=== PATIENT | male | born 1965 | race Caucasian/White ===

== ENCOUNTER 2021-05-28 01:18 | Outpatient (CLI) | payer MEDICAID, SELFPAY ==
[2021-05-28 12:09] LABS: Source Nasal/Nares
[2021-05-28 15:19] LABS: COVID-19 PCR Positive (Negative)
== END 2021-05-28 01:19 | disposition home or self-care (01) ==
LOC: LBO 01:18
PROVIDERS: PCP Family Medicine; Visit Provider Surgery
DX: Z20.822 Contact with and (suspected) exposure to COVID-19 (principal); Z01.818 Encounter for other preprocedural examination
CPT/HCPCS: 87635

== ENCOUNTER 2021-07-28 03:07 | Outpatient (CLI) | payer MEDICAID, SELFPAY ==
[2021-07-28 10:40] LABS: Source Nasal/Nares
[2021-07-28 13:07] LABS: COVID-19 PCR Negative (Negative)
== END 2021-07-28 03:08 | disposition home or self-care (01) ==
LOC: LBO 03:07
PROVIDERS: PCP Family Medicine; Visit Provider Surgery
DX: Z20.822 Contact with and (suspected) exposure to COVID-19 (principal); Z01.818 Encounter for other preprocedural examination
CPT/HCPCS: 87635

== ENCOUNTER 2021-07-29 08:47 | Day surgery (SDC) | payer MEDICAID, SELFPAY ==
--- NOTE | 2021-07-28 09:51 | ENDO_ITS ---
Date of service: 07/29/21 Time of Service: 17:15 Endoscopy Report DATE OF PROCEDURE: 07/29/21 PRE-OP DIAGNOSIS: Rizzo's esophagus POST-OP DIAGNOSIS: other (mild doudenitits/mild gastritis/2cm tongue Barett's/1cm H.hernia) SURGEON: Pia Figueroa ANESTHESIA TYPE: General:No Airway ESTIMATED BLOOD LOSS: 2 PATHOLOGY: other COMPLICATIONS: None DISPOSITION: PACU PROCEDURE DESCRIPTION: After informed consent was obtained the patient was take to the procedure room and placed in a supine position. Monitors were applied and a time out was done. The patients name, date of , procedure type, allergies to medications and metal in their body was reviewed. A bite block was placed and the patient was sedated. Once sedated and comfortable the gastroscope was advanced through the oropharynx which was grossly normal into the esophagus. The proximal and mid-esophagus were nl. In the distal esophagus there was 2cm tongue of Rizzo's x1 noted. There are no esophageal varices/diverticula/or stricture. The scope was advanced into the stomach and through the pylorus into the 3rd portion of the duodenum. The duodenum was noted: mild duodenitis, otherwise normal. Biopsies were done, all specimens are retrieved and no bleeding is noted. The scope was retracted back into the stomach and biopsies were done to rule out H. pylori. There were no ulcers. There is some mild to moderate gastritis in the dependent portion of the stomach/along the greater curvature.. The scope was retroflexed. The cardia and fundus were noted to be normal. There small 1 production support manager hiatal hernia noted. The scope was retracted back into the esophagus and biopsies were done of the GE junction to rule out Rizzo's. The Z line was irregular. The GE junction was at 40 cm. Biopsies were also taken of the distal esophagus at 38 and 39 cm. The largest tongue of Rizzo the exist all the way up to 38 cm/is 2 cm in length.. The scope was removed and the patient was woken up and taken back to [facility] in stable condition. Patient has been encouraged to take a proton pump inhibitor or H2 christiana. He does not want to take medications.
--- NOTE | 2021-07-28 18:14 | W.PM.DSUDISC ---
Discharge Plan Disposition Patient Disposition: HOME Condition: Good Discharge Details Reason For Visit: stomach scope Attending Provider: Pia Figueroa Primary Care Provider: Joseph Aquino Home Meds and New Rx's Prescriptions: No Action fuazsdi-wvca-aiquq-oreg-capryl 100 mg-150 mg- 50 mg-150 mg capsule 1 cap PO DAILY 0RF focus Factor 1 cap PO DAILY 0RF Discharge Instructions Additional Instructions: Post EGD Instruction ? ?You had anesthesia for your EGD/stomach scope today.? For your safety, please do the following for the next twenty-four (24) hours: Do Not operate a motor vehicle (car, truck, motorcycle, etc.) Do Not drink alcoholic beverages or use any recreational drugs for the first 24 hours or while taking pain medications. The medications in your body may have a reaction that can be dangerous. Do Not make any important decisions or sign any important papers You have just had a gastroscopy (EGD) or upper GI tract examination. It is important for your smooth recovery that you carefully follow the recommendations below. Do not hesitate to call if any questions should arise about your anesthesia, condition, or care. -Symptoms you may experience during the next 24 hours: ?1. Mild abdominal pain or excessive gas or a bloated feeling which improves with rest, liquids, eating? slightly, and walking as tolerated. 2. Drowsiness and/or forgetfulness because of the medications you were given. ?3. Throat numbness for about 1 hour. 4. A sore throat which you can treat with throat lozenges or by gargling with salt water 4-5 times a day. 5. Redness at the site of your IV which you can treat with warm compresses. SPECIAL INSTRUCTIONS: 1. You may resume your previous diet in one hour. We recommend a light meal to start, then progress as tolerated. 2. Restart regular medications in one hour. 3. No aspirin or non-steroidal containing medication for three days. 4. No lifting over 20 pounds or strenuous activity for the first 24 hours after your procedure. After 24 hours there are no restrictions on your activity, but you may feel fatigued for a few days. ? Findings: -Mild gastritis and duodenitis -Small hiatal hernia -Rizzo's esophagus ? Treatment: -Stop any smoking products. -You should be on a PPI daily for your reflux, such as Protonix or , or Prilosec. -Continue to follow lifestyle modifications: No alcohol, tobacco products, Aspirin or NSAID's (ibuprofen, Motrin, Naprosyn, aleve, etc).? Try to limit/avoid:? soda pop/any carbonated beverages, caffeine (including tea & chocolate), and acidic foods, (tomatoes, citrus, onions, peppermints) spicy or fried/fatty foods. Do not lie down for 30 minutes after eating, and do not eat 2 hours prior to bedtime. Avoid wearing tight fitting clothing/ belts. Follow up: My office will send a letter with the results of your biopsy?s in 2-3wks time. -Plan on repeat EGD in 3 years time. Call the office at [phone] (Office) or [phone] (Hospital), or go to the ER right away if you notice any of the followin. Vomiting blood and /or ?coffee ground? material. ?2. Worsening of abdominal pain or cramping. ?3. Trouble with breathing, cough, and/or fever (temperature above 101.5 F). 4. Increasing pain with swallowing. ?5. Chest pain. 6. Any new symptoms. 7. Worsening of the redness at the IV site ? Activity:: see above Diet:: see above Discharge Orders Discharge Orders: Discharge Order (Routine); Ordered 07/28/21 Ordered By: Pia Figueroa
[2021-07-29 09:05] VITALS: BP 127/84; PULSE 57; RESP 18; TEMP 36.9; O2SAT 97
[2021-07-29] MEDS: Lactated Ringers 1,000 ML 80 ML IV (09:23)
--- NOTE | 2021-07-29 09:24 | ANES.PREOP_ITS ---
General Info Date of Service Date Performed: 07/29/21 Height: 5 ft 9 in Weight: 9.5 kg Body Mass Index (BMI): 3.0 Surgical Procedure: Operation Date: 07/29/21 10:20 Proposed Procedure Side Surgeon p Gastroscopy Pia Figueroa, Meds Allergies and Home Medications Allergies Allergy/AdvReac Type Severity Reaction Status Date / Time Tone soap Allergy Intermediate Skin Rash Uncoded 07/29/21 09:15 Home Medication Medication Instructions Recorded focus Factor 1 cap PO DAILY 07/17/21 tumeric 100 mg-kay 150 mg-olive 1 cap PO DAILY 07/17/21 50 mg-oreg 150 mg-caprylate capsule Current Visit Medications: Current Medications Generic Name Dose Route Start Last Admin Trade Name Freq PRN Reason Stop Dose Admin Hyoscyamine Sulfate 0.125 mg 07/28/21 09:51 Hyoscyamine 0.125 Mg Sl/Oral/Chew SL 07/29/21 16:00 DIRECTED PRN Ringer's Solution 1,000 mls @ 80 mls/hr 07/29/21 06:00 07/29/21 09:23 IV 07/31/21 23:59 80 mls/hr INFUSION WAYNE Administration IV Miscellaneous Supplies 1 each 07/29/21 06:00 Iv Access IV 07/31/21 23:59 DIRECTED WAYNE Ondansetron HCl 4 mg 07/28/21 09:51 Ondansetron 4 Mg/2 Ml Vial IVP 07/29/21 16:00 Q4H PRN PRN Nausea / Vomiting Sodium Chloride 0 ml 07/29/21 06:00 Normal Saline Flush 10 Ml Syr IV 07/31/21 23:59 PRN PRN Sodium Chloride 0 ml 07/29/21 06:00 Normal Saline 10 Ml Vial IJ 07/31/21 23:59 DIRECTED PRN Sterile Water 0 ml 07/29/21 06:00 Water,Injection,Sterile 10 Ml Vial IJ 07/31/21 23:59 DIRECTED PRN PFSH Active Problems Active Problems: Problem Status Onset Code Barretts esophagus K22.70 Tubular adenoma of colon D12.6 Hyperplastic colon polyp K63.5 Left lower quadrant pain R10.32 Medical History Medical History COVID (~05/28/21) symptomatic Diverticulitis GERD (gastroesophageal reflux disease) Hypertension Melena Surgical History Surgical History Colectomy (~08/2008) Sigmoid resection for diverticulitis Colonoscopy - MAC (08/06/17) EGD - MAC (08/06/17) Tobacco Smoking/Tobacco Use Status: Former Tobacco Use Alcohol Alcohol Intake: never Substance Use Substance use: Occasionally Substance use type: marijuana and other Details: Vapes CBD Daily, last today at 07.29.21 0700 Vital Signs and Lab Results Vital Signs Most Recent Vital Signs in EMR: Most Recent Vital Signs Temp Pulse Resp BP Pulse Ox 36.9 C 57 L 18 127/84 97 07/29/21 09:05 07/29/21 09:05 07/29/21 09:05 07/29/21 09:05 07/29/21 09:05 Lab Results Blood Type / Crossmatch: No Data to Display Complete Blood Count: No Data to Display Complete Metabolic Panel: No Data to Display Liver Function Panel: 2 No Data to Display Coagulation Panel: No Data to Display Cardiac Panel: No Data to Display Arterial Blood Gas: No Data to Display Venous Blood Gas: No Data to Display Pancreas Panel: No Data to Display Thyroid Panel: No Data to Display Infectious Disease: Coronavirus (COVID-19)(PCR) Negative (Negative) 07/28/21 08:49 07/28/21 Coronavirus 2019 Source Nasal/Nares 07/28/21 08:49 07/28/21 Blood Cultures: No Data to Display Toxicology Panel: No Data to Display Anesthesia Assessment and Plan Anesthesia History Personal History: No History of Anesthesia Complications Family History: No Family History of Anesthesia Complications Exercise Tolerance Exercise Tolerance: Metabolic Equivalents>4 Pertinent Negatives Pertinent Negatives: No Symptoms of GERD Cardiac & Pulmonary Exam Cardiac Exam: Normal S1/S2 Heart Sounds Pulmonary Exam: Clear Bilateral Breath Sounds Implantable Cardiac Device Does patient have a Pacemaker or an ICD?: No Airway Exam Known Difficult Airway: No Mallampati Class: 2 Mouth Opening: Normal (> 3cm) Thyromental Distance: Greater than 3 cm Neck Range of Motion: Full ROM Neck Circumference: Normal Teeth Condition: Generalized Poor Dentition and Edentulous (Upper) ASA Classification ASA Score: ASA 2 Emergency Case?: No NPO Status NPO Status: NPO Clears >2 hours, Solids >8 hours Anesthesia Plan Resuscitation Status: Full Code Anesthesia Technique: General Anesthesia Airway Planned: Natural Airway Monitors Used: Standard Monitors
--- NOTE | 2021-07-29 11:18 | STOM_PTH ---
PATIENT: Aneesh Mcadams LOC: [facility] U#:[id number] AGE/SX: 56/M ROOM: RE07/29/[address]: Pia Figueroa : 1965 BED: DIS: 07/29/2021 SPEC #: [id number] RECD: 07/29/21 13:07 STATUS: LAURE ARZOLA #: [id number] PARAMJIT: 07/29/21 11:[address]: Pia Figueroa DEPT: Surgical Specimen RECD BY: Ju[place] Nam ENTERED: 07/29/21 13:09 SP TYPE: STOMACH OTHR DR: Joseph Aquino Tissues: 1 - BIOPSY BOWEL 2 - BIOPSY BOWEL 3 - STOMACH BIOPSY 4 - STOMACH BIOPSY 5 - ESOPHAGUS BIOPSY 6 - ESOPHAGUS BIOPSY 7 - ESOPHAGUS BIOPSY Procedures: GROSS AND MICRO LEVEL 4 Comments: [id number]
--- NOTE | 2021-07-29 11:41 | W.ANESPOSTOP ---
Postoperative Evaluation Date, Time and Location Date Performed: 07/29/21 Time Performed: 11:41 Patient Location: Day Surgery Unit Vital Signs Most Recent Imported Vital Signs: Most Recent Vital Signs Temp Pulse Resp BP Pulse Ox 36.9 C 57 L 18 127/84 97 07/29/21 09:05 07/29/21 09:05 07/29/21 09:05 07/29/21 09:05 07/29/21 09:05 Most Recent Manually Entered Vital Signs: Adult Blood Pressure: 123/77 Heart Rate: 50 Respirations: 12 Oxygen Saturation (%): 98 Temperature (C): 36.3 C Pain Score (0-10 Scale): 0 Pain Score Most Recent Pain Score: Most Recent Pain Score Pain Level 0 07/29/21 09:05 Assessment Mental Status: Awake (Alert & Oriented to Patient Baseline) Airway and Respiratory Function: Patent airway with normal (patient baseline) respiratory exam Cardiovascular Function: Hemodynamically Stable Hydration Status: Adequately Hydrated Nausea & Vomiting: No Nausea or Vomiting Pain: Pt. Denies Any Pain Peripheral Nerve Block: Patient did not receive a nerve block
[2021-07-29 11:42] VITALS: BP 123/77; PULSE 50; PULSE 51; RESP 12; RESP 16; TEMP 36.2; TEMPC 36.3; O2SAT 98
[2021-07-29 12:06] VITALS: BP 123/77; PULSE 52; RESP 17; TEMP 36.3; O2SAT 100
== END 2021-07-29 12:35 | disposition home or self-care (01) ==
LOC: SUR 08:48
PROVIDERS: PCP Family Medicine; Visit Provider Surgery
PROC: 0DJ68ZZ Inspection of Stomach, Via Natural or Artificial Opening Endoscopic (ICD-10-PCS; CPT 43235; principal; 2021-07-29 10:15)
DX: K22.70 Barrett's esophagus without dysplasia (principal); K21.9 Gastro-esophageal reflux disease without esophagitis; I10 Essential (primary) hypertension; K29.70 Gastritis, unspecified, without bleeding; K29.80 Duodenitis without bleeding; K44.9 Diaphragmatic hernia without obstruction or gangrene; K31.89 Other diseases of stomach and duodenum
CPT/HCPCS: 43239; 88305